=== PATIENT | male | born 2000 | race Caucasian/White ===

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

== ENCOUNTER → 2022-02-05 07:43 | Outpatient (CLI) | payer OTHER, SELFPAY ==
--- NOTE | 2022-02-05 | DI.US.S_ITS ---
PROCEDURE: US SCROTUM INDICATIONS: RIGHT TESTICULAR MASS TECHNIQUE: Real-time scanning was performed of the scrotum and testicles, with image documentation. Color and pulse Doppler interrogation was performed of both testicles. COMPARISON: None. FINDINGS: Right: Testicle is normal in size at 4.4 x 2.2 x 2.6 cm, and homogenous in echotexture. Epididymis is normal in overall size. There is focal area of heterogeneous echotexture in the right epididymis at the junction of the head and body without definite discrete mass. Small 6 millimeter simple cyst noted in the right epididymal head. No hydrocele or varicoceles. Overlying scrotal skin is normal in thickness. Left: Testicle is normal in size at 4.8 x 2.4 x 2.9 cm, and homogeneous in echotexture. Epididymis is normal in overall size and morphology. No hydrocele or varicoceles. Overlying scrotal skin is normal in thickness. Doppler: Color and pulse Doppler demonstrate normal and symmetric arterial flow in both testicles. IMPRESSION: 1. Small nonspecific area of heterogeneous echotexture in the right epididymis at the junction of the right epididymal head and body. Recommend repeat ultrasound in 3 months. If area of abnormal echotexture is not resolved urology consultation should be obtained. 2. Testicles are sonographically normal. Dictated by: Sally Chappell MD, PhD on 02/05/2022 at 11:10 Approved by: Sally Chappell MD, PhD on 02/05/2022 at 11:39
== END ==
PROVIDERS: PCP Family Medicine; Referring Provider Physician Assistant; Visit Provider Physician Assistant
DX: N50.89 Other specified disorders of the male genital organs (principal)
CPT/HCPCS: 76870